=== PATIENT | male | born 1985 | race African-American/Black ===

== ENCOUNTER → 2018-10-28 | Outpatient (CLI) | payer OTHER ==
--- NOTE | 2018-10-28 10:24 | REP ---
Left foot: Four views. History: Recurrent left fifth toe infection. Findings: Four views of the left foot demonstrate no radiographic abnormality. Bones, joints and soft tissues are unremarkable. 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 Impression: No acute bony abnormality. Negative radiographs left foot. Electronically Signed by Troy Menchaca MD 10/28/2018 10:15 A
== END ==
LOC: M RAD 09:26
PROVIDERS: ATTEND Surgery
DX: L08.9 Local infection of the skin and subcutaneous tissue, unspecified (principal)